=== PATIENT | female | born 2000 | race African-American/Black ===

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

== ENCOUNTER 2022-06-13 15:56 | Emergency (ER) | payer OTHER ==
[2022-06-13 17:22] LABS: HEMOGLOBIN 12.9 gm/dl (12.3-15.3); RED BLOOD COUNT 4.26 M/UL (4.00-5.10); WHITE BLOOD COUNT 10.2 K/UL (4.5-11.0)
[2022-06-13 17:54] LABS: BUN/CREATININE RATIO 14 (0-10)
== END 2022-06-13 20:25 | disposition home or self-care (01) ==
LOC: ER1 15:56
PROVIDERS: Physician Assistant
DX: O20.9 Hemorrhage in early pregnancy, unspecified (principal); Z88.0 Allergy status to penicillin; Z88.5 Allergy status to narcotic agent; Z3A.01 Less than 8 weeks gestation of pregnancy
CPT/HCPCS: 76817; 80053; 81001; 84702; 85025; 99284